=== PATIENT | female | born 1940 | race Caucasian/White ===

== ENCOUNTER 2023-01-23 17:54 | Outpatient (RCR) | payer MEDICARE, OTHER, SELFPAY | END 2023-02-17 23:59 | disposition home or self-care (01) | LOC: MM 17:54 | PROVIDERS: PCP Internal Medicine; Visit Provider Internal Medicine | DX: Z51.81 Encounter for therapeutic drug level monitoring (principal); Z79.01 Long term (current) use of anticoagulants | CPT/HCPCS: 85610; G0463 ==

== ENCOUNTER 2023-02-22 11:14 | Outpatient (RCR) | payer MEDICARE, OTHER, SELFPAY | END 2023-03-20 16:47 | disposition home or self-care (01) | LOC: MM 11:14 | PROVIDERS: PCP Internal Medicine; Visit Provider Internal Medicine | DX: Z51.81 Encounter for therapeutic drug level monitoring (principal); Z79.01 Long term (current) use of anticoagulants | CPT/HCPCS: 85610; G0463 ==

== ENCOUNTER 2023-03-21 08:59 | Outpatient (RCR) | payer MEDICARE, OTHER, SELFPAY | END 2023-04-20 17:16 | disposition home or self-care (01) | LOC: MM 08:59 | PROVIDERS: Visit Provider Internal Medicine | DX: Z51.81 Encounter for therapeutic drug level monitoring (principal); Z79.01 Long term (current) use of anticoagulants | CPT/HCPCS: 85610; G0463 ==

== ENCOUNTER 2023-04-21 08:06 | Outpatient (RCR) | payer MEDICARE, OTHER, SELFPAY | END 2023-05-19 16:34 | disposition home or self-care (01) | LOC: MM 08:06 | PROVIDERS: Visit Provider Internal Medicine | DX: Z51.81 Encounter for therapeutic drug level monitoring (principal); Z79.01 Long term (current) use of anticoagulants | CPT/HCPCS: 85610; G0463 ==

== ENCOUNTER 2023-05-22 02:26 | Outpatient (RCR) | payer MEDICARE, OTHER, SELFPAY | END 2023-06-20 17:34 | disposition home or self-care (01) | LOC: MM 02:26 | PROVIDERS: Visit Provider Internal Medicine | DX: Z51.81 Encounter for therapeutic drug level monitoring (principal); Z79.01 Long term (current) use of anticoagulants | CPT/HCPCS: 85610; G0463 ==

== ENCOUNTER 2023-06-21 00:27 | Outpatient (RCR) | payer MEDICARE, OTHER, SELFPAY | END 2023-07-20 16:24 | disposition home or self-care (01) | LOC: MM 00:27 | PROVIDERS: Visit Provider Internal Medicine | DX: Z51.81 Encounter for therapeutic drug level monitoring (principal); Z79.01 Long term (current) use of anticoagulants | CPT/HCPCS: 85610; G0463 ==

== ENCOUNTER 2023-07-21 09:01 | Outpatient (RCR) | payer MEDICARE, OTHER, SELFPAY | END 2023-08-18 15:27 | disposition home or self-care (01) | LOC: MM 09:01 | PROVIDERS: Visit Provider Internal Medicine | DX: Z51.81 Encounter for therapeutic drug level monitoring (principal); Z79.01 Long term (current) use of anticoagulants ==

== ENCOUNTER 2023-08-21 00:43 | Outpatient (RCR) | payer MEDICARE, OTHER, SELFPAY | END 2023-09-20 15:47 | disposition home or self-care (01) | LOC: MM 00:43 | PROVIDERS: Visit Provider Internal Medicine | DX: Z51.81 Encounter for therapeutic drug level monitoring (principal); Z79.01 Long term (current) use of anticoagulants; I26.99 Other pulmonary embolism without acute cor pulmonale | CPT/HCPCS: 85610; G0463 ==

== ENCOUNTER 2023-09-21 00:43 | Outpatient (RCR) | payer MEDICARE, OTHER, SELFPAY | END 2023-10-19 17:09 | disposition home or self-care (01) | LOC: MM 00:43 | PROVIDERS: Visit Provider Internal Medicine | DX: Z51.81 Encounter for therapeutic drug level monitoring (principal); Z79.01 Long term (current) use of anticoagulants; I26.99 Other pulmonary embolism without acute cor pulmonale | CPT/HCPCS: 85610; G0463 ==

== ENCOUNTER 2023-10-20 01:04 | Outpatient (RCR) | payer MEDICARE, OTHER, SELFPAY | END 2023-11-17 13:01 | disposition home or self-care (01) | LOC: MM 01:04 | PROVIDERS: Visit Provider Internal Medicine | DX: Z51.81 Encounter for therapeutic drug level monitoring (principal); Z79.01 Long term (current) use of anticoagulants; I26.99 Other pulmonary embolism without acute cor pulmonale ==

== ENCOUNTER 2023-11-20 03:13 | Outpatient (RCR) | payer MEDICARE, OTHER, SELFPAY | END 2023-12-19 17:46 | disposition home or self-care (01) | LOC: MM 03:13 | PROVIDERS: Visit Provider Internal Medicine | DX: Z51.81 Encounter for therapeutic drug level monitoring (principal); Z79.01 Long term (current) use of anticoagulants; I26.99 Other pulmonary embolism without acute cor pulmonale | CPT/HCPCS: 85610; G0463 ==

== ENCOUNTER 2023-12-20 00:15 | Outpatient (RCR) | payer MEDICARE, OTHER, SELFPAY | END 2024-01-19 11:09 | disposition home or self-care (01) | LOC: MM 00:15 | PROVIDERS: Visit Provider Internal Medicine | DX: Z51.81 Encounter for therapeutic drug level monitoring (principal); Z79.01 Long term (current) use of anticoagulants; I26.99 Other pulmonary embolism without acute cor pulmonale | CPT/HCPCS: 85610; G0463 ==

== ENCOUNTER 2024-01-22 00:14 | Outpatient (RCR) | payer MEDICARE, OTHER, SELFPAY | END 2024-02-16 09:56 | disposition home or self-care (01) | LOC: MM 00:14 | PROVIDERS: Visit Provider Internal Medicine | DX: Z51.81 Encounter for therapeutic drug level monitoring (principal); Z79.01 Long term (current) use of anticoagulants; I26.99 Other pulmonary embolism without acute cor pulmonale ==

== ENCOUNTER 2024-02-19 00:35 | Outpatient (RCR) | payer MEDICARE, OTHER, SELFPAY | END 2024-03-20 09:35 | disposition home or self-care (01) | LOC: MM 00:35 | PROVIDERS: Visit Provider Internal Medicine | DX: Z51.81 Encounter for therapeutic drug level monitoring (principal); Z79.01 Long term (current) use of anticoagulants; I26.99 Other pulmonary embolism without acute cor pulmonale | CPT/HCPCS: 85610; G0463 ==

== ENCOUNTER 2024-03-21 00:28 | Outpatient (RCR) | payer MEDICARE, OTHER, SELFPAY | END 2024-04-19 09:15 | disposition home or self-care (01) | LOC: MM 00:28 | PROVIDERS: Visit Provider Internal Medicine | DX: Z51.81 Encounter for therapeutic drug level monitoring (principal); Z79.01 Long term (current) use of anticoagulants | CPT/HCPCS: 85610; G0463 ==

== ENCOUNTER 2024-04-22 00:50 | Outpatient (RCR) | payer MEDICARE, OTHER, SELFPAY | END 2024-05-20 23:50 | disposition home or self-care (01) | LOC: MM 00:50 | PROVIDERS: Visit Provider Internal Medicine | DX: Z51.81 Encounter for therapeutic drug level monitoring (principal); Z79.01 Long term (current) use of anticoagulants; I26.99 Other pulmonary embolism without acute cor pulmonale ==

== ENCOUNTER 2024-05-21 01:22 | Outpatient (RCR) | payer MEDICARE, OTHER, SELFPAY | END 2024-06-20 23:42 | disposition home or self-care (01) | LOC: MM 01:22 | PROVIDERS: Visit Provider Internal Medicine | DX: Z51.81 Encounter for therapeutic drug level monitoring (principal); Z79.01 Long term (current) use of anticoagulants; I26.99 Other pulmonary embolism without acute cor pulmonale | CPT/HCPCS: 85610; G0463 ==

== ENCOUNTER 2024-06-21 10:40 | Outpatient (RCR) | payer MEDICARE, OTHER, SELFPAY | END 2024-07-20 23:59 | disposition home or self-care (01) | LOC: MM 10:40 | PROVIDERS: Visit Provider Internal Medicine | DX: Z51.81 Encounter for therapeutic drug level monitoring (principal); Z79.01 Long term (current) use of anticoagulants; I26.99 Other pulmonary embolism without acute cor pulmonale | CPT/HCPCS: 85610; G0463 ==

== ENCOUNTER 2024-07-21 10:41 | Outpatient (RCR) | payer MEDICARE, OTHER, SELFPAY | END 2024-08-20 09:35 | disposition home or self-care (01) | LOC: MM 10:41 | PROVIDERS: Visit Provider Internal Medicine | DX: Z51.81 Encounter for therapeutic drug level monitoring (principal); Z79.01 Long term (current) use of anticoagulants ==

== ENCOUNTER 2024-08-22 00:16 | Outpatient (RCR) | payer MEDICARE, OTHER, SELFPAY | END 2024-09-20 15:20 | disposition home or self-care (01) | LOC: MM 00:16 | PROVIDERS: Visit Provider Internal Medicine | DX: Z51.81 Encounter for therapeutic drug level monitoring (principal); Z79.01 Long term (current) use of anticoagulants | CPT/HCPCS: 85610; G0463 ==

== ENCOUNTER 2024-09-23 02:34 | Outpatient (RCR) | payer MEDICARE, OTHER, SELFPAY | END 2024-10-18 10:48 | disposition home or self-care (01) | LOC: MM 02:34 | PROVIDERS: Visit Provider Internal Medicine | DX: Z51.81 Encounter for therapeutic drug level monitoring (principal); Z79.01 Long term (current) use of anticoagulants ==

== ENCOUNTER 2024-10-20 08:03 | Outpatient (RCR) | payer MEDICARE, OTHER, SELFPAY | END 2024-11-15 13:34 | disposition home or self-care (01) | LOC: MM 08:03 | PROVIDERS: Visit Provider Internal Medicine | DX: Z51.81 Encounter for therapeutic drug level monitoring (principal); Z79.01 Long term (current) use of anticoagulants ==

== ENCOUNTER 2024-11-19 06:11 | Outpatient (RCR) | payer MEDICARE, OTHER, SELFPAY | END 2024-12-18 15:16 | disposition home or self-care (01) | LOC: MM 06:11 | PROVIDERS: Visit Provider Internal Medicine | DX: Z51.81 Encounter for therapeutic drug level monitoring (principal); Z79.01 Long term (current) use of anticoagulants | CPT/HCPCS: 85610; G0463 ==

== ENCOUNTER 2024-12-19 04:40 | Outpatient (RCR) | payer MEDICARE, OTHER, SELFPAY | END 2025-01-17 15:13 | disposition home or self-care (01) | LOC: MM 04:40 | PROVIDERS: Visit Provider Internal Medicine | DX: Z51.81 Encounter for therapeutic drug level monitoring (principal); Z79.01 Long term (current) use of anticoagulants | CPT/HCPCS: 85610; G0463 ==

== ENCOUNTER 2025-01-08 10:45 | Outpatient (OUT) | payer MEDICARE, OTHER, SELFPAY ==
--- OUTSIDE RECORDS SUMMARY | 2025-01-08 10:48 | XMS_ITS | Clinical Summary ---
Author Organization [facility] Address [address] [place] [address] Care Team Providers Care Personal Injury Specialist Name Role Phone Unavailable Primary Care Provider Unavailabl e Social History Tobacco Use Types Packs/Day Years Used Date Smoking Tobacco: Never Assessed Comments Unknown Sex and Gender Information Value Date Recorded Sex Assigned at Not on file Legal Sex Female 10:59 PM EST Gender Identity Not on file Sexual Orientation Not on file Plan of Treatment Not on file
--- OUTSIDE RECORDS SUMMARY | 2025-01-08 10:50 | XMS_ITS | CCD ---
Author Organization [facility] Care Team Providers Care [place] Cleaner Name Role Phone Barbara Holman Unavailable DR BARBARA HOLMAN Primary Care Unavailable FAWWAD, KLINE H Attending Unavailable FAWWAD, KLINE H Admitting Unavailable FAWWAD, KLINE H Attending Unavailable DR BARBARA HOLMAN Primary Care Unavailable FAWWAD, KLINE H Admitting Unavailable FAWWAD, KLINE H Attending Unavailable DR BARBARA HOLMAN Primary Care Unavailable FAWWAD, KLINE H Admitting Unavailable FAWWAD, KLINE H Attending Unavailable DR BARBARA HOLMAN Primary Care Unavailable FAWWAD, KLINE H Admitting Unavailable FAWWAD, KLINE H Attending Unavailable DR BARBARA HOLMAN Primary Care Unavailable FAWWAD, KLINE H Admitting Unavailable FAWWAD, KLINE H Attending Unavailable DR BARBARA HOLMAN Primary Care Unavailable FAWWAD, KLINE H Admitting Unavailable FAWWAD, KLINE H Attending Unavailable DR BARBARA HOLMAN Primary Care Unavailable FAWWAD, KLINE H Admitting Unavailable FAWWAD, KLINE H Attending Unavailable DR BARBARA HOLMAN Primary Care Unavailable FAWWAD, KLINE H Admitting Unavailable FAWWAD, KLINE H Admitting Unavailable DR BARBARA HOLMAN Primary Care Unavailable FAWWAD, KLINE H Attending Unavailable DR BARBARA HOLMAN Primary Care Unavailable FAWWAD, KLINE H Attending Unavailable FAWWAD, KLINE H Admitting Unavailable DR BARBARA HOLMAN Primary Care Unavailable FAWWAD, KLINE H Attending Unavailable FAWWAD, KLINE H Admitting Unavailable BARBARA HOLMAN Primary Care Physician [phone] BARBARA HOLMAN Unavailable Greg Oakley Attending UnavailGreg Haskins Admitting UnavailDANIE Mendoza Referring Unavailable CARMEN, DANIE Mccoy Attending Unavailable BARBARA HOLMAN Referring Unavailable CARMEN, DANIE Mccoy Attending Unavailable CARMEN, DANIE Mccoy Attending Unavailable CARMEN, DANIE Mccoy Attending Unavailable CARMEN, DANIE Mccoy Attending Unavailable Barbara Holman MD Attending Provider [phone] Barbara Holman Attending Unavailable Barbara Holman Admitting Unavailable Allergies Allergy Classification Reported Allergen(s) Allergy Type Date of Onset Reaction(s) Facility (1 source) patient allergy list reviewed by nurse or physicia Propensity to adverse reactions Comment:Done [employer] Other (1 source) Allergies Reconciled Propensity to adverse reactions Unknown [employer] Other (2 sources) heparin; Translations: [heparin] Drug Allergy Unknown (qualifier value) [facility] Medications Current Medications Medication Drug Class(es) Dates Sig (Normalized) Sig (Original) amLODIPine 5 mg oral tablet (4 sources) Dihydropyridine Calcium Channel Gasper take 1 tablet by mouth every twenty-four hours amLODIPine Besylate 5 MG 1 tablet Orally Once a day Active aspirin 81 mg delayed release oral tablet (7 sources) Platelet Aggregation Inhibitor, Nonsteroidal Anti-inflammatory Drug Start: 11-29-2023 take 1 tablet by mouth once daily Aspirin 81 mg tablet,delayed release (DR/EC) Active 81 MG PO Daily November 29, 2023 12:00am FreeTextSi tablet Orally Once a day; Note: Source Status: Taking; Provider: Lisa Jimenez ( ) take 1 tablet by vanessa th every twenty-four hours Aspirin 81 81 MG 1 tablet Orally Once a day Active atorvastatin 40 mg oral tablet (4 sources) HMG-CoA Reductase Inhibitor take 1 tablet by mouth every twenty-four hours Atorvastatin Calcium 40 MG 1 tablet Orally Once a day Active losartan potassium 100 mg oral tablet (19 sources) Angiotensin 2 Receptor Gasper Start: 05-13-20 End: 08-12-20 take 1 tablet by mouth once daily Losartan 100 mg tablet Active 0 .ROUTE .COMPLEX 90 August 12, 2024 10:51am Take 1 tablet by mouth once daily Start: 02-15-2024 End: 05-13-2024 take 1 tablet by mouth once daily Losartan 100 mg tablet Discontinued 100 MG PO Daily February 15, 2024 2:50pm May 13, 2024 1:12pm Start: 11-08-2023 End: 02-15-2024 take 1 tablet by mouth once daily Losartan 100 mg tablet Discontinued 0 .ROUTE .COMPLEX February 12, 2024 12:50pm February 15, 2024 2:51pm Take 1 tablet by mouth once daily Start: 09-13-2022 End: 11-08-2023 take 1 tablet by mouth once daily Losartan 100 mg tablet Discontinued 100 MG PO Daily November 08, 2023 12:00am November 08, 2023 1:51pm Occupational therapy (1 source) Start: 09-15-2022 Occupational therapy Occupational therapy, Print Requisition, Supply Start Date: 09/15/22 Status: Ordered warfarin sodium 2 mg oral tablet (16 sources) Vitamin K Antagonist Start: 06-24-2024 End: 10-10-2024 take 1 tablet by mouth once daily Warfarin 2 mg tablet Active 0 .ROUTE .COMPLEX October 10, 2024 12:31pm Take 1 tablet by mouth once daily Start: 09-13-2022 End: 06-24-2024 take 1 tablet by mouth once daily Warfarin 2 mg tablet Discontinued 2 MG PO Daily November 29, 2023 12:00am January 01, 2024 2:53pm Completed/Discontinued Medications Medication Drug Class(es) Dates Sig (Normalized) Sig (Original) atenolol 100 mg oral tablet (12 sources) beta-Adrenergic Gasper Start: 03-27-2024 End: 09-24-2024 take 1 tablet by mouth once daily Atenolol 100 mg tablet Discontinued 0 .ROUTE .COMPLEX June 24, 2024 5:43pm September 24, 2024 3:41pm Take 1 tablet by mouth once daily Start: 09-13-2022 End: 03-27-2024 take 1 tablet by mouth once daily Atenolol 100 mg tablet Discontinued 1 TAB PO Daily November 29, 2023 12:00am January 01, 2024 2:53pm FreeTextSig: Take 1 tablet by mouth once daily; Note: Source Status: Start; Refills: 0; Qty: 90 Tablet; Provider: Lisa Jimenez ( ) hydroCHLOROthiazide 25 mg oral tablet (19 sources) Thiazide Diuretic Start: 10-23-2023 End: 10-30-2024 take 1 tablet by mouth once daily Hydrochlorothiazide 25 mg tablet Discontinued 0 .ROUTE .COMPLEX 90 July 29, 2024 5:53pm October 30, 2024 12:39pm Take 1 tablet by mouth once daily Start: 09-13-2022 End: 10-23-2023 take 1 tablet by mouth once daily Hydrochlorothiazide 25 mg tablet Discontinued 25 MG PO Daily October 23, 2023 1:00am October 23, 2023 4:07pm methylPREDNISolone 4 mg oral tablet (3 sources) Corticosteroid Start: 11-29-2023 End: 12-12-2024 Methylprednisolone 4 mg tablets,dose pack Discontinued 0 PO per package directions November 29, 2023 12:00am December 12, 2024 10:36am PO PER PKG DIR for 6 days Start: 11-29-2023 Methylpredniso lone Active 0 PO per package directions November 29, 2023 12:00am PO PER PKG DIR for 6 days traMADol hydrochloride 50 mg oral tablet (5 sources) Opioid Agonist Start: 11-29-2023 End: 11-29-2023 take 1 tablet by mouth four times daily as needed Tramadol 50 mg tablet Discontinued MG PO November 29, 2023 12:00am November 29, 2023 11:10am FreeTextSi tablet Orally four times daily, as needed; Note: Source Status: Refill; Qty: 28 Tablet; Provider: Lisa Humphreys Start: 06-29-2023 take 1 tablet by vanessa th four times daily as needed traMADol HCl 50 MG 1 tablet Orally four times daily, as needed for 7 days Jun, Active Start: 12-09-2022 take 1 tablet by vanessa th four times daily as needed traMADol HCl 50 MG 1 tablet Orally four times daily, as needed for 7 days Nov, Active 24 hr venlafaxine 150 mg extended release oral capsule (16 sources) Serotonin and Norepinephrine Reuptake Inhibitor Start: 09-13-2022 End: 12-05-2024 take 1 capsule by mouth once daily Venlafaxine 150 mg capsule,extended release 24hr Discontinued 150 MG PO Daily October 30, 2023 10:18am Ada 10th, 2024 11:23am Problems Active Problems Problem Classification Problem Date Documented Date Episodic/Chronic Acute cerebrovascular disease (8 sources) Ischemic stroke; Translations: [Cerebral infarction, unspecified] Chronic Anxiety disorders (8 sources) Mixed anxiety and depressive disorder; Translations: [Other specified anxiety disorders] 11-29-2023 Chronic Coagulation and hemorrhagic disorders (8 sources) Hypercoagulability state; Translations: [Other primary thrombophilia] Chronic Conditions associated with dizziness or vertigo (5 sources) Vertigo; Translations: [Dizziness and giddiness] Episodic Diabetes mellitus without complication (6 sources) Impaired fasting glycemia; Translations: [Impaired fasting glucose] Onset: 6 Episodic Disorders of lipid metabolism (6 sources) Hyperlipidemia; Translations: [Hyperlipidemia, unspecified] Onset: 3 Chronic Essential hypertension (11 sources) Essential hypertension; Translations: [Essential (primary) hypertension] Onset: 3 Chronic Genitourinary symptoms and ill-defined conditions (4 sources) Dysuria; Translations: [Dysuria] 12-12-2024 Episodic Heart valve disorders (5 sources) Heart murmur; Translations: [Cardiac murmur, unspecified] 11-29-2023 Episodic Mood disorders (1 source) Dysthymia; Translations: [Dysthymic disorder] Chronic Osteoarthritis (7 sources) Osteoarthritis of left knee joint; Translations: [Unilateral primary osteoarthritis, left knee] Chronic Other aftercare (4 sources) Encounter for therapeutic drug level monitoring; Translations: [ENC THERAPEUTC DRUG LEVL MONITORING] Onset: 3 Episodic Other aftercare (1 source) detention (current) use of anticoagulants; Translations: [LONGTERM CURRNT USE ANTICOAGULANTS] Onset: 3 Episodic Other circulatory disease (5 sources) Elevated blood-pressure reading without diagnosis of hypertension; Translations: [Elevated blood-pressure reading, without diagnosis of hypertension] Episodic Other injuries and conditions due to external causes (1 source) History of fall; Translations: [History of falling] Episodic Other non-traumatic joint disorders (5 sources) Pain in right knee; Translations: [Pain in both knees] 11-29-2023 Episodic Other nutritional; endocrine; and metabolic disorders (5 sources) Morbid obesity; Translations: [Morbid (severe) obesity due to excess calories] Chronic Other nutritional; endocrine; and metabolic disorders (2 sources) Obesity; Translations: [Class 2 obesity with body mass index (BMI) of 38.0 to 38.9 in adult] 12-12-2024 Chronic Other skin disorders (4 sources) Inflamed seborrheic keratosis; Translations: [Inflamed seborrheic keratosis] Episodic Pulmonary heart disease (2 sources) Personal history of pulmonary embolism; Translations: [H/O: pulmonary embolus] Onset: 3 Episodic Spondylosis; intervertebral disc disorders; other back problems (1 source) Degeneration of lumbar intervertebral disc; Translations: [Degeneration of lumbar or lumbosacral intervertebral disc] Chronic Past or Other Problems Problem Classification Problem Date Documented Date Episodic/Chronic Malaise and fatigue (1 source) Fatigue; Translations: [Other fatigue] Onset: 02-22-2018 Episodic Other non-traumatic joint disorders (1 source) Arthralgia of the pelvic region and thigh; Translations: [Pain in joint, pelvic region and thigh] Onset: 08-31-2016 Episodic Other non-traumatic joint disorders (1 source) Arthralgia of the lower leg; Translations: [Pain in joint, lower leg] Onset: 01-31-2017 Episodic Other nutritional; endocrine; and metabolic disorders (1 source) Abnormal weight gain; Translations: [Abnormal weight gain] Onset: 03-20-2014 Episodic Residual codes; unclassified (1 source) Postoperative state; Translations: [Other postprocedural status] Onset: 02-14-2017 Episodic Results Test Name Value Interpretation Reference Range Facility Appearance of UrineOrdered B y: Barbara Holman on 12-12-2024 Appearance (U) Urine appearance Clear [facility] Bacteria [Presence] in Urine by AutomatedOrdered By: Barbara Holman on 12-12-2024 Bacteria Auto Ql (U) Bacteria [Presence] in Urine by Automated High None Seen [facility] Bilirubin Test strip Ql (U)O rdered By: Barbara Holman on 12-12-2024 Bilirubin Ql (U) Bilirubin.total [Presence] in Urine by Test strip Negative [facility] Color Auto (U)Ordered By: Paula Holman on 12-12-2024 Color (U) Color of Urine by Auto Yellow [facility] Creatinine [Mass/volume] in UrineOrdered By: Barbara Holman on 12-12-2024 Creatinine (U) [Mass/Vol] Creatinine [Mass/volume] in Urine [facility] Comment on above: No reference range e stablished Dipstick and Microscopicon 0 12-12-2024 Appearance (U) Clear Normal Clear [facility] Comment on above: Order Comment: Name Collection Type:: Clean-Voided Midstream Performed By: #### C UU, ADDONUAPLUS, URMACRERAT #### [address] Bacteria,Urine 4+ High None Seen [facility] Comment on above: Order Comment: Name Collection Type:: Clean-Voided Midstream Performed By: #### C UU, ADDONUAPLUS, URMACRERAT #### [place] [address] [place] Bilirubin,Urine Negative Normal Negative [facility] Comment on above: Order Comment: Name Collection Type:: Clean-Voided Midstream Performed By: #### C UU, ADDONUAPLUS, URMACRERAT #### [address] Color (U) Light-Yellow Normal Yellow [facility] Comment on above: Order Comment: Name Collection Type:: Clean-Voided Midstream Performed By: #### C UU, ADDONUAPLUS, URMACRERAT #### [address] Glucose Ql (U) Normal Normal Normal [facility] Comment on above: Order Comment: Name Collection Type:: Clean-Voided Midstream Performed By: #### C UU, ADDONUAPLUS, URMACRERAT #### [place] [address] [place] Hyaline Casts,Urine None Normal 0-8 [facility] Comment on above: Order Comment: Name Collection Type:: Clean-Voided Midstream Performed By: #### C UU, ADDONUAPLUS, URMACRERAT #### [address] Ketones Ql (U) Negative Normal Negative [facility] Comment on above: Order Comment: Name Collection Type:: Clean-Voided Midstream Performed By: #### C UU, ADDONUAPLUS, URMACRERAT #### [address] Leukocyte esterase Test strip Ql (U) 3+ High Negative [facility] Comment on above: Order Comment: Name Collection Type:: Clean-Voided Midstream Performed By: #### C UU, ADDONUAPLUS, URMACRERAT #### [place] [address] [place] Mucus,Urine Rare Normal [facility] Comment on above: Order Comment: Name Collection Type:: Clean-Voided Midstream Result Comment: PERF ORMED BY: [place] [address] REGISTRY OFFICER SABRINA PAZ M.D. Performed By: #### C UU, ADDONUAPLUS, URMACRERAT #### [place] [address] [place] Nitrite,Urine Negative Normal Negative [facility] Comment on above: Order Comment: Name Collection Type:: Clean-Voided Midstream Performed By: #### C UU, ADDONUAPLUS, URMACRERAT #### [place] [address] [place] Occult Blood,Urine Negative Normal Negative [facility] Comment on above: Order Comment: Name Collection Type:: Clean-Voided Midstream Result Comment: PERF ORMED BY: [place] [address] REGISTRY OFFICER SABRINA PAZ M.D. Performed By: #### C UU, ADDONUAPLUS, URMACRERAT #### [place] [id number] [place] pH (U) 6.0 [pH] Normal 5.0-9.0 [facility] Comment on above: Order Comment: Name Collection Type:: Clean-Voided Midstream Performed By: #### C UU, ADDONUAPLUS, URMACRERAT #### [place] [address] [place] Protein,Urine Negative Normal Negative [facility] Comment on above: Order Comment: Name Collection Type:: Clean-Voided Midstream Performed By: #### C UU, ADDONUAPLUS, URMACRERAT #### [place] [address] [place] RBC,Urine 1-2 Normal 0-4 [facility] Comment on above: Order Comment: Name Collection Type:: Clean-Voided Midstream Performed By: #### C UU, ADDONUAPLUS, URMACRERAT #### [address] Specificy [place],Urine 1.008 Normal 1.001-1.030 [facility] Comment on above: Order Comment: Name Collection Type:: Clean-Voided Midstream Performed By: #### C UU, ADDONUAPLUS, URMACRERAT #### [address] Squamous Epithelial Cell,Urine 3-4 High 0-2 [facility] Comment on above: Order Comment: Name Collection Type:: Clean-Voided Midstream Performed By: #### C UU, ADDONUAPLUS, URMACRERAT #### [place] [address] [place] Urobilinogen,Urine Normal Normal Normal [facility] Comment on above: Order Comment: Name Collection Type:: Clean-Voided Midstream Performed By: #### C UU, ADDONUAPLUS, URMACRERAT #### [place] [address] [place] WBC CLUMP, Urine Few High None Seen [facility] Comment on above: Order Comment: Name Collection Type:: Clean-Voided Midstream Performed By: #### C UU, ADDONUAPLUS, URMACRERAT #### [place] [address] [place] WBC,Urine 20-49 High 0-4 [facility] Comment on above: Order Comment: Name Collection Type:: Clean-Voided Midstream Performed By: #### C UU, ADDONUAPLUS, URMACRERAT #### [facility] [address] Epithelial cells.squamous [# /area] in Urine sediment by Automated countOrdered By: Barbara Holman on 12-12-2024 Epithelial cells.squamous Auto (Urine sed) [#/Area] Epithelial cells.squamous [#/area] in Urine sediment by Automated count High 0-2 [facility] Erythrocytes [#/area] in Uri ne sediment by Automated countOrdered By: Barbara Holman on 12-12-2024 RBC Auto (Urine sed) [#/Area] Erythrocytes [#/area] in Urine sediment by Automated count 0-4 [facility] Glucose [Mass/volume] in Uri ne by Test stripOrdered By: Barbara Holman on 12-12-2024 Glucose Test strip (U) [Mass/Vol] Glucose [Mass/volume] in Urine by Test strip Normal [facility] Hemoglobin Test strip Ql (U) Ordered By: Barbara Holman on 12-12-2024 Hemoglobin Ql (U) Hemoglobin [Presence] in Urine by Test strip Negative [facility] Hyaline casts [#/area] in Ur ine sediment by Automated countOrdered By: Barbara Holman on 12-12-2024 Hyaline casts Auto (Urine sed) [#/Area] Hyaline casts [#/area] in Urine sediment by Automated count 0-8 [facility] Ketones Test strip Ql (U)Ord ered By: Barbara Holman on 12-12-2024 Ketones Ql (U) Ketones [Presence] in Urine by Test strip Negative [facility] Leukocyte clumps [Presence] in Urine by AutomatedOrdered By: Barbara Holman on 12-12-2024 Leukocyte clumps Auto Ql (U) Leukocyte clumps [Presence] in Urine by Automated High None Seen [facility] Leukocyte esterase [Presence ] in Urine by Test stripOrdered By: Barbara Holman on 12-12-2024 Leukocyte esterase Test strip Ql (U) Leukocyte esterase [Presence] in Urine by Test strip High Negative [facility] Leukocytes [#/area] in Urine sediment by Automated countOrdered By: Barbara Holman on 12-12-2024 WBC Auto (Urine sed) [#/Area] Leukocytes [#/area] in Urine sediment by Automated count High 0-4 [facility] MicroAlb Creat Ratio,Uon Albumin DL <= 20 mg/L (U) [Mass/Vol] 0.9 mg/dL Normal 0.0-1.8 [facility] Comment on above: Performed By: #### C UU, ADDONUAPLUS, URMACRERAT #### [address] Creatinine, Urine (Random) 37.00 mg/dL Normal [facility] Comment on above: Result Comment: No r eference range established Performed By: #### C UU, ADDONUAPLUS, URMACRERAT #### [address] Microalbumin/Creatinin e Ratio 24.3 mg/g Normal 0.0-30.0 [facility] Comment on above: Result Comment: 30-3 00 mg/g indicates an increased risk for diabetic nephropathy. Greater than 300 mg/g is consistent with clinical nephropathy. (Am. J. Kidney Disease 1995, 25:107) PERFORMED BY: [place] [address] REGISTRY OFFICER SABRINA PAZ M.D. Performed By: #### C UU, ADDONUAPLUS, URMACRERAT #### [address] Microalbumin [Mass/volume] i n UrineOrdered By: Barbara Holman on 12-12-2024 Albumin DL <= 20 mg/L (U) [Mass/Vol] Microalbumin [Mass/volume] in Urine 0.0-1.8 [facility] Mucus [Presence] in Urine by AutomatedOrdered By: Barbara Holman on 12-12-2024 Mucus Auto Ql (U) Mucus [Presence] in Urine by Automated [facility] Nitrite Test strip Ql (U)Ord ered By: Barbara Holman on 12-12-2024 Nitrite Ql (U) Nitrite [Presence] in Urine by Test strip Negative [facility] Protein Test strip (U) [Mass /Vol]Ordered By: Barbara Holman on 12-12-2024 Protein (U) [Mass/Vol] Protein [Mass/volume] in Urine by Test strip Negative [facility] Specific gravity Test strip (U) [Rel density]Ordered By: Barbara Holman on 12-12-2024 Specific gravity (U) [Rel density] Specific gravity of Urine by Test strip 1.001-1.030 [facility] Urine Cultureon 12-12-2024 Bacteria identified Cx Nom (U) ORGANISM: Escherichia coli (O:ESCCOL) [place] Count >100,000 Aerobic ALYCE Charge (NMIC56) ----- SUSCEPTIBILITY ---- ORGANISM: O:ESCCOL ANTIBIOTIC INTERPRETATION ALYCE Amikacin S <16 Amoxacillin/K Clavulanate S <8 Ampicillin S <8 Ampicillin/Sulbactam S <4 Aztreonam S <4 Cefazolin S <2 Cefepime S <2 Ceftazidime S <1 Ceftazidime/Avibacta m S <4 Ceftolozane/Tazobact am S <2 Ceftriaxone S <1 Cefuroxime S <4 Ciprofloxacin S <0.25 Ertapenem S <0.5 Gentamicin S <2 Levofloxacin S <0.5 Meropenem S <1 Meropenem/Vaborbacta m S <2 Nitrofurantoin S <32 Piperacillin/Tazobac carbajal S <8 Tetracycline S <4 Tigecycline S <2 Tobramycin S <2 Trimethoprim/Sulfame thoxazole S <0.5 S = SUSCEPTIBLE I = INTERMEDIATE R = RESISTANT BLANK = DATA NOT AVAILABLE, OR DRUG NOT ADVISABLE OR TESTED R* = RESISTANCE DUE TO EXTENDED SPECTRUM BETA-LACTAMASES ESBL = EXTENDED SPECTRUM BETA-LACTAMASE TFG = THYMIDINE-DEPENDENT STRAIN AYALA = BETA-LACTAMASE POSITIVE IB = INDUCIBLE BETA-LACTAMASE. APPEARS IN PLACE OF 'S' WITH SPECIES KNOWN TO POSSESS INDUCIBLE BETA-LACTAMASES. POTENTIALLY THEY MAY BECOME RESISTANT TO ALL B-LACTAM DRUGS. PERFORMED BY: [facility] [address] [place] [address] REGISTRY OFFICER SABRINA PAZ M.D. Normal [facility] Comment on above: Performed By: #### C UU, ADDJUANA, URMACRERAT #### [facility] [address] Urine microalbumin/creatinin e mass ratioOrdered By: Barbara Holman on 12-12-2024 Albumin/Creatinine DL <= 20 mg/L (U) [Mass ratio] Urine microalbumin/creatin ine mass ratio 0.0-30.0 [facility] Comment on above: 30-300 mg/g indicate s an increased risk for diabetic nephropathy. Greater than 300 mg/g is consistent with clinical nephropathy. (Am. J. Kidney Disease 1995, 25:107) Urobilinogen Test strip (U) [Mass/Vol]Ordered By: Barbara Holman on 12-12-2024 Urobilinogen (U) [Mass/Vol] Urobilinogen [Mass/volume] in Urine by Test strip Normal [facility] pH Test strip (U)Ordered By: Barbara Holman on 12-12-2024 pH (U) pH of Urine by Test strip 5.0-9.0 [facility] Heart and Vascular Office/Cl inic Noteon 01-21-2024 Heart and Vascular Office/Clinic Note Chief Complaint here to establish care - murmur History of Present Illness Abbie Marquez is an 83-year-old female who presents for evaluation of heart murmur. She experienced a mild stroke approximately a year ago. The patient was referred to a humane agent by his primary care physician due to the presence of a heart murmur. She reports experiencing dyspnea, particularly when ascending stairs or hills, which she attributes to her advancing age and weight. She has not previously consulted with a humane agent and recalls a previous stress test conducted by Dr. Aguilar in [place]. Imaging Results: Echocardiogram shows calcium on the valves leading to some turbulent blood flow, but nothing significant or severe. EKG shows abnormal results. Review of Systems Constitutional: no fever, no sweats, no weakness Skin: no rash, no lesions, no bruising/petechiae ENMT: no sore throat, no congestion, no hoarseness Respiratory: positive for shortness of breath, no cough, no orthopnea, no wheezing Cardiovascular: no chest pain, no palpitations, no edema, positive for murmur. Gastrointestinal: no nausea, no vomiting, no diarrhea, no GI bleeding Genitourinary: no anuria/oliguria no hematuria Musculoskeletal: no back pain, no trauma Neurologic: no headache, no dizziness, no numbness, no weakness Psychiatric: no sleeping problems, no irritability, no anxiety/depression. Heme/Lymph: no bleeding tendency, no bruising tendency Allergy/Immunologic: no recurrent infections, no impaired immunity Additional ROS info: Except as noted in the above Review of Systems and in the History of Present Illness all other systems have been reviewed and are negative or noncontributory Physical Exam Vitals & Measurements HR: 67(Peripheral) BP: 138/90 SpO2: 96% HT: 62 in HT: 157 cm WT: 99.2 kg WT: 218.24 lb BMI: 40.25 General: alert, no acute distress Skin: warm, dry intact Head: atraumatic, normocephalic Neck: trachea midline, no JVD, no bruit Eye: normal conjunctiva, sclera clear ENMT: oral mucosa moist Cardiovascular: regular rate and rhythm, normal peripheral perfusion, positive for murmur. Respiratory: lungs CTA, respirations non labored Chest wall: no deformity. Gastrointestinal: soft, non-distended, no tenderness, no guarding. Back: no tenderness, normal ROM, normal alignment. Extremities: no edema, no deformity, no trauma Neurological: oriented x 4, LOC appropriate for age, sensation equal & normal bilaterally, speech normal Psychiatric: cooperative, affect appropriate for age, normal judgement, normal psychiatric thoughts. Assessment/Plan Murmur (R01.1: Cardiac murmur, unspecified) An echocardiogram and a chemical stress test will be ordered for further evaluation. If the echocardiogram results remain stable compared to the one conducted in 2022, no further concerns will be made. However, if the condition deteriorates over time, a valve replacement may be necessary in 5 years. Follow-up The patient is scheduled for a follow-up visit in 4 weeks. ATTESTATION: Documentation services were performed after patient or guardian consented to allow [employer] to record this visit. RADHA medical management specialist and provider reviewed before signing. RADHA: Rachid Little. Portions of this record may have been created with voice recognition artificial intelligence software, specifically [employer], [employer] and or [employer]. Substitutions may have occurred due to the inherent limitations of voice recognition and artificial intelligence software. Follow-up No qualifying data available Problem List/Past Medical History Ongoing CVA (cerebrovascular accident) Historical No qualifying data Medications atenolol 100 mg Tab hydrochlorothiazide 25 mg Tab losartan 100 mg Tab Occupational therapy, 0 venlafaxine 150 mg Cap-ER warfarin 2 mg Tab Allergies heparin (Unknown) Social History Alcohol - Denies Alcohol Use, 09/13/2022 Substance Abuse - Denies Substance Abuse, 09/13/2022 Tobacco - Denies Tobacco Use, 09/13/2022 [facility] Comment on above: Result Comment: Elec tronically Signed By: Cele POMPA, Greg Sam\.br\Date and Time Signed: 01/21/24 19:43 EDT\.br\Electronically Co-Signed By: Rachid Little\.br\Date and Time Co-Signed: 12/27/23 15:55 EDT Consent for Treatmenton Consent for Treatment [id number] #1.00TIFF [facility] Physician Orderon 12-27-2023 Physician Order [id number] #1.00TIFF [facility] Referrals Officeon 4 Referrals Office [id number] 3#1.00TIFF [facility] Referrals Officeon 4 Referrals Office [id number] #1.00TIFF patient scheduled with Dr Oakley 12-27-23 @ 215p [facility] Vital Signs Date Time Vital Sign Value Performing Clinician Joaquín sarmiento 12-12-2024 10:33-0400 Body height 158.75 cm [facility] 12-12-2024 10:33-0400 Body mass index (BMI) [Ratio] 38.7 kg/m2 [facility] 12-12-2024 10:33-0400 Body weight 97.74 kg [facility] 12-12-2024 10:33-0400 Diastolic blood pressure 71 mm[Hg] [facility] 12-12-2024 10:33-0400 Heart rate 58 /min [facility] 12-12-2024 10:33-0400 Respiratory rate 12 /min [facility] 12-12-2024 10:33-0400 SaO2% (BldA) [Mass fraction] 95 % [facility] 12-12-2024 10:33-0400 Systolic blood pressure 123 mm[Hg] [facility] 12-27-2023 14:11-0400 Diastolic blood pressure 90 mm[Hg] Greg Oakley [facility] 12-27-2023 14:11-0400 Heart rate 67 /min Greg Oakley [facility] 12-27-2023 14:11-0400 SaO2% (BldA) [Mass fraction] 96 % Greg Oakley [facility] 12-27-2023 14:11-0400 Systolic blood pressure 138 mm[Hg] Greg Oakley [facility] 11-29-2023 10:54-0400 Body height 152.4 cm [facility] 11-29-2023 10:54-0400 Body mass index (BMI) [Ratio] 42.8 kg/m2 [facility] 11-29-2023 10:54-0400 Body weight 99.45 kg [facility] 11-29-2023 10:54-0400 Diastolic blood pressure 67 mm[Hg] [facility] 11-29-2023 10:54-0400 Heart rate 55 /min [facility] 11-29-2023 10:54-0400 Systolic blood pressure 105 mm[Hg] [facility] 09-21-2022 12:00-0500 Body height 152.4 cm Barbara Holman Other [facility] 09-21-2022 12:00-0500 Body mass index (BMI) [Ratio] 42.96 kg/m2 Barbara Holman Other [facility] 09-21-2022 12:00-0500 Body weight 99.79 kg Barbara Holman Other [facility] Other 09-21-2022 12:00-0500 Diastolic blood pressure 72 mm[Hg] Barbara Holman Other [facility] Other 09-21-2022 12:00-0500 SaO2% (BldA) [Mass fraction] 97 % Barbara Holman Other [facility] Other 09-21-2022 12:00-0500 Systolic blood pressure 130 mm[Hg] Barbara Holman Other [facility] Other Encounters Encounter Date Encounter Type Care Provider Facility Start: 12-12-2024 End: 12-12-2024 Departed Referred Barbara Holman MD Work Phone: [facility] [place] Work Phone: Start: 12-12-2024 End: 12-12-2024 ambulatory Barbara Holman [facility] Work Phone: Start: 12-12-2024 End: 12-12-2024 Patient encounter procedure [facility] Work Phone: Start: 04-01-2024 End: 04-01-2024 ambulatory MEKA POCOS Not Available Start: 02-19-2024 End: 02-19-2024 ambulatory MEKA POCOS Not Available Start: 02-12-2024 End: 02-12-2024 ambulatory MEKA POCOS Not Available Start: 02-05-2024 End: 02-05-2024 ambulatory MEKA POCOS Not Available Start: 01-03-2024 End: 01-03-2024 ambulatory MEKA POCOS Not Available Start: 12-27-2023 End: 12-27-2023 ambulatory BARBARA HOLMAN Facility:[facility] Start: 12-27-2023 End: 12-27-2023 Patient encounter procedure Greg Oakley [facility] Start: 11-29-2023 Patient encounter procedure [facility] Start: 11-29-2023 End: 11-29-2023 ambulatory [facility] Work Phone: Start: 11-29-2023 End: 11-29-2023 Patient encounter procedure [facility] Work Phone: Start: 10-30-2023 Non-patient / Non-visit [facility] Work Phone: Start: 10-23-2023 Non-patient / Non-visit [facility] Work Phone: Start: 06-28-2023 End: 06-28-2023 ambulatory Barbara Holman Other [facility] Other Start: 06-28-2023 Telephone encounter Barbara Holman [facility] Start: 12-19-2022 End: 01-18-[address] BARBARA HOLMAN Facility: Start: 12-08-2022 End: 12-08-2022 ambulatory Barbara Holman Other [facility] Other Start: 12-08-2022 Telephone encounter Barbara Holman [facility] Start: 11-21-2022 End: 12-16-[address] BARBARA HOLMAN Facility:[facility] Start: 10-19-2022 End: 11-18-[address] BARBARA HOLMAN Facility:[facility] Start: 09-21-2022 Office outpatient visit 25 minutes Barbara Holman [facility] Start: 09-21-2022 End: 10-19-2022 ambulatory KLINE H FAWWAD [facility] Other Start: 09-16-2022 End: 09-16-2022 ambulatory Barbara Holman Other [facility] Other Start: 09-16-2022 Telephone encounter Barbara Holman [facility] Start: 08-22-2022 End: 09-21-2022 ambulatory KLINE H FAWWAD Facility:[facility] Start: 07-21-2022 End: 08-21-2022 ambulatory KLINE H FAWWAD Facility:[facility] Start: 06-21-2022 End: 07-20-2022 ambulatory KLINE H FAWWAD Facility:[facility] Start: 05-22-2022 End: 06-20-2022 ambulatory KLINE H FAWWAD Facility:[facility] Start: 04-26-2022 Adult health examination Barbara Holman Other [facility] Other Start: 04-21-2022 End: 05-21-2022 ambulatory KLINE H FAWWAD Facility:[facility] Start: 03-21-2022 End: 04-20-2022 ambulatory KLINE H FAWWAD Facility:[facility] Start: 02-18-2022 End: 03-18-2022 ambulatory KLINE H FAWWAD Facility:[facility] Procedures Date Procedure Procedure Detail Performing Clinician Start: 02-22-2018 General examination of patient Barbara Holman Other Removal of suture Barbara Patel latrice Other Plan of Treatment Date Care Activity Detail Author Start: 12-12-2024 Bacteria identified in Urine by Culture Urine Culture [facility] Start: 12-12-2024 Urine culture [facility] Start: 11-29-2023 Patient referral [facility] Work Phone: Comprehensive metabo lic 2000 panel - Serum or Plasma [facility] Patient referral [facility] Work Phone: [facility] Immunizations Immunization Date Immunization Notes Care Provider Fa cility 05-28-2013 meningococcal oligosaccharide (groups A, C, Y and W-135) diphtheria toxoid conjugate vaccine (MCV4O) Barbara Lisa Other [facility] 05-28-2013 pneumococcal Conjuga te, unspecified formulation; Translations: [Need for prophylactic vaccination against Streptococcus pneumoniae (pneumococcus)] Barbara Holman Other [facility] Other 05-28-2013 tetanus and diphther ia toxoids, adsorbed, preservative free, for adult use (5 Lf of tetanus toxoid and 2 Lf of diphtheria toxoid) Barbara Holman Other [facility] Payers Date Payer Category Payer Self-pay 2022 Unknown [id number] 1958 Medicare [id number] 2.1 [id number] 1959 Unknown [id number] 2.16.8 [id number] 1941 Unknown [id number] 2.16.84 0.1.518939.3.579.2.593 1941 Unknown [id number] 2.16.84 0.1.594656.3.579.2.593 1941 Unknown [id number] 2.16.84 0.1.808051.3.579.2.593 1941 Unknown [id number] 2.16.84 0.1.574859.3.579.2.593 1941 Unknown [id number] 2.16.84 0.1.014670.3.579.2.593 1941 Unknown [id number] 2.16.84 0.1.007175.3.579.2.593 1941 Unknown [id number] 2.16.84 0.1.954236.3.579.2.593 1941 Unknown [id number] 2.16.84 0.1.174933.3.579.2.593 1941 Unknown [id number] 2.16.84 0.1.857019.3.579.2.593 1941 Unknown [id number] 2.16.84 0.1.759168.3.579.2.593 1941 Unknown [id number] 2.16.84 0.1.999268.3.579.2.593 1941 Unknown [id number] 2.16.8 40.1.038282.3.579.2.727 1941 Unknown [id number] 2.16.84 0.1.579067.3.579.2.1259 1941 Unknown [id number] 2.16.84 0.1.672276.3.579.2.1259 1941 Unknown [id number] 2.16.84 0.1.772863.3.579.2.1259 1941 Unknown [id number] 2.16.84 0.1.972092.3.579.2.1259 1941 Unknown [id number] 2.16.84 0.1.394420.3.579.2.1259 1941 Unknown [id number] 2.16.84 0.1.863099.3.579.2.1259 1941 Unknown [id number] 2.16.84 0.1.682814.3.579.2.1259 Unknown [id number] 2.16.8 40.1.558652.3.579.2.531 Social History Date Type Detail Facility Unknown if ever smoked [facility] Other Sex Assigned At [facility] Start: 1940 Sex Assigned At Female F [facility] Tobacco smoking status No Smokin g Status Entered [facility] Tobacco smoking stat [facility] Unknown if ever smoked [facility] Work Phone: Start: 12-12-2024 End: 12-13-2024 Sex Female (finding) [facility] Functional Status Date Assessment Result Facility 12-27-2023 Functional Status N/A Pritesh Elmore [facility] Clinical Notes 09-21-2022 to 12-12-2024 Note Date & Type Note Facility 12-12-2024 Evaluation note Diagnosis Onset Date Resolution Bilateral knee pain acute December 12, 2024 10:24am Cardiac murmur acute November 10:24am Class 2 obesity with body mass index (BMI) of 38.0 to 38.9 in adult acute December 12 10:24am Depression with anxiety acute A pril 2024 10:24am Dysuria acute December 12 10:24am Essential hypertension acute Ap ril 2024 10:24am Hypercoagulable state acute Apr 2024 10:24am Medicare annual wellness visit, subsequent acute December 12 10:24am [facility] Work Phone: [phone]) 685-313211-08-2023 Evaluation note* Encounter Date Diagnosis Assessment Notes Treatment Notes Treatment Clinical Notes Jun, Arthritis of left knee (ICD-10 - M17.12) [facility] Other 04-20-2023 Evaluation note* Encounter Date Diagnosis Assessment Notes Treatment Notes Treatment Clinical Notes Nov, Arthritis of left knee (ICD-10 - M17.12) [facility] Other 02-01-2023 Evaluation note* Encounter Date Diagnosis Assessment Notes Treatment Notes Treatment Clinical Notes Sep, Ischemic stroke (ICD-10 - I63.9) Continue present medicines. Keep follow-up appointment with neurology. Therapy order was rewritten so she was able to go to the [facility] PT office as that is much closer to her home. Sep, Hyperlipidemia (ICD- 10 - E78.5) New medication added. We will recheck cholesterol in 3 months. Sep, Essential hypertensi on (ICD-10 - I10) Stable on present medicines. Sep, Hypercoagulable stat e (ICD-10 - D68.59) Continue warfarin. I will investigate if Pritesh Saha has a Coumadin clinic that she can follow-up closer to home. [facility] Other Evaluation + Plan note Future Appointments Appointment Date:01/25/2024 09:30:00 AM Scheduled Provider:Anish Jeffrey PA-C Location:[facility]Cardiology Clinic Appointment Type:Cardiology Follow Up ([facility]) Future Scheduled Tests Radiology* NM Myocardial Spect Rest/Stress 1 Day 12/27/23 * Echo Transthoracic [facility]23 [facility] Other Evaluation note* Diagnosis Onset Date Resolution Status Bilateral knee pain acute Cardiac murmur acute [facility] Work Phone: Evaluation note* Diagnosis Onset Date Resolution Status Admit Date Dysuria acute December 12 10:24am Essential hypertension acute Ap 2024 10:24am [facility] Work Phone: History general Narrative - Reported* Type Description Date Medical History Diastolic blood pressure 90 mm H g or higher Medical History Obesity, morbid Medical History Depression with anxiety Medical History Hypercoagulable state Medical History Essential hypertension Medical History Elevated fasting glucose Medical History Osteoarthritis of le ft knee, unspecified osteoarthritis type Medical History Hyperlipidemia Medical History Vertigo Medical History Inflamed seborrheic keratosis Medical History stroke Surgical History CHOLECYSTECTOMY Surgical History APPENDECTOMY Hospitalization History SEE SURGICAL HX [facility] Other Hospital course Narrative No data available for this section [facility] Orders* Referral to Cardiology Time Frame: 11/29/23, Location: None Selected * Referral to Orthopedic Surgery Time Frame: 11/29/23, Location: None Selected [facility] Work Phone: Hospital Discharge instructions No data available for this section [facility] No data available for this section [facility] Summary Purpose Family History No Family History Records Found Relationship Condition Age at Onset Recorded Date/T terrance father Unknown Not Specified Unknown Relationship Condition Age at Onset Recorded Date/T terrance father Unknown mother Unknown Advance Directives No Advanced Directives Records Found Advance Directive Response Recorded Date/ Time Advance Directives No November 07, 024 3:14pm Chief Complaint and Reason for Visit Chief Complaint Admit Date Wellness December 12, 2024 10: 24am Reason for Visit Admit Date Bilateral knee pain December 12, 2024 10: 24am Cardiac murmur December 12, 2024 10: 24am Class 2 obesity with body ma ss index (BMI) of 38.0 to 38.9 in adult December 12, 2024 10:24am Depression with anxiety December 12, 2024 10:24am Dysuria December 12, 2024 10: 24am Essential hypertension December 12, 2024 10:24am Hypercoagulable state December 12, 2024 1 0:24am Medicare annual wellness visit, subseque nt December 12, 2024 10:24am Chief Complaint Amb Documentation Amb Documentation Wellness Reason for Visit Bilateral knee pain Cardiac murmur Reason for Visit Admit Date Dysuria December 12, 2024 10: 24am Essential hypertension December 12, 2024 10:24am Additional Source Comments REASON FOR VISIT (unrecogniz ed section and content) TCMFTMCrefillrefill INFORMATION SOURCE (unrecogn ized section and content) DATE CREATED AUTHOR 01/27/2023 [facility] DATE CREATED AUTHOR AUTHOR'S ORGANIZ ATION 01/21/2024 [facility] DATE CREATED AUTHOR AUTHOR'S ORGANIZ ATION 04/02/2024 [facility] EPIC DATE CREATED AUTHOR AUTHOR'S ORGANIZ ATION 12/26/2024 [facility] Care Teams (unrecognized sec tion and content) Team Status: Active Member Role Status Dates Barbara Holman MD Primary Care Provider Active Team Status: Inactive Member Role Status Dates Barbara Holman MD Primary Care Provide r, Attending Provider Active Start: December 12, 2024 End: December 12, 2024 Team Status: Active Member Role Status Dates Barbara Holman MD Primary Care Provider Active Start: October 23, 2023 CAROLINA Campbell Attending Provider Active Start : October 23, 2023 Team Status: Active Member Role Status Dates Barbara Holman MD Primary Care Provider Active Start: October 30, 2023 CAROLINA Campbell Attending Provider Active Start : October 30, 2023 Team Status: Inactive Member Role Status Dates Barbara Holman MD Primary Care Provide r, Attending Provider Active Start: November 29, 2023 End: November 29, 2023 Team Status: Inactive Member Role Status Dates Barbara Holman MD Attending Provider Active St art: December 12, 2024 End: December 12, 2024 Goals (unrecognized section and content) Goals may be documented in a n alternate section FOR RECORDS PERTAINING TO PATIENTS WHO ARE OR HAVE BEEN ENROLLED IN A CHEMICAL DEPENDENCY/SUBSTANCEABUSE PROGRAM, SOME INFORMATION MAY BE OMITTED. This clinical summary was aggregated from multiple sources. Caution should be exercised in using it in the provision of clinical care. This summary normalizes information from multiple sources, and as a consequence, information in this document may materially change the coding, format and clinical context of patient data. In addition, data may be omitted in some cases. CLINICAL DECISIONS SHOULD BE BASED ON THE PRIMARY CLINICAL RECORDS. [facility]. provides no warranty or guarantee of the accuracy or completeness of information in this document.
[2025-01-08 11:10] LABS: Basophils Percent Auto 0.6 % (0.2-2.0); Eosinophils Absolute Auto 0.2 10^3/uL (0.0-0.7); Eosinophils Percent Auto 2.1 % (0.9-7.0); Hematocrit 39.1 % (36.0-48.0); Immature Granulocytes Abs Auto 0.03 10^3/uL (0.00-0.03); Immature Granulocytes Pct Auto 0.4 % (0.0-0.5); Lymphocytes Percent Auto 13.6 % (20.5-60.0); Mean Corpuscular HGB Conc 33.2 g/dL (29.9-35.2); Mean Corpuscular Hemoglobin 31.1 pg (26.7-34.0); Mean Corpuscular Volume 93.5 fL (81.0-99.0); Mean Platelet Volume 10.4 fL (9.5-13.5); Monocytes Absolute Auto 0.5 10^3/uL (0.3-0.8); Neutrophils Absolute Auto 5.4 10^3/uL (1.4-6.5); Neutrophils Percent Auto 76.3 % (43.0-75.0); Platelet Count 213 10^3/uL (150-450); Red Blood Count 4.18 10^6/uL (4.20-5.40); White Blood Count 7.1 10^3/uL (4.0-11.0)
[2025-01-08 11:29] LABS: Alanine Aminotransferase 27 U/L (14-59); Albumin Level 3.4 g/dL (3.4-5.0); Alkaline Phosphatase 39 U/L (46-116); Anion Gap 13.3; Aspartate Amino Transferase 16 U/L (15-37); BUN Creatinine Ratio 23.2; Bilirubin Total 0.6 mg/dL (0.2-1.0); Calcium 9.3 mg/dL (8.5-10.1); Carbon Dioxide 30.1 mmol/L (21.0-32.0); Chloride 103 mmol/L (98-107); Estimated GFR (African America >60 (>=60 mL/min/1.73m^2); Estimated GFR (Non-African Ame 56 (>=60 mL/min/1.73m^2); Globulin 3.5 g/dL; Glucose 116 mg/dL (74-106); Potassium 4.4 mmol/L (3.5-5.1); Sodium 142 mmol/L (136-145); Total Protein 6.9 g/dL (6.4-8.2)
== END 2025-01-08 10:46 | disposition home or self-care (01) ==
LOC: LAB 10:47
PROVIDERS: PCP Family Medicine; Visit Provider Family Medicine
DX: R30.0 Dysuria (principal); I10 Essential (primary) hypertension; Z51.81 Encounter for therapeutic drug level monitoring; Z79.01 Long term (current) use of anticoagulants
CPT/HCPCS: 36415; 80053; 81003; 82043; 82570; 85025; 85610

== ENCOUNTER 2025-02-05 13:12 | Outpatient (RCR) | payer MEDICARE, OTHER, SELFPAY | END 2025-02-13 14:53 | disposition home or self-care (01) | LOC: MM 13:12 | PROVIDERS: PCP Family Medicine; Visit Provider Internal Medicine | DX: Z51.81 Encounter for therapeutic drug level monitoring (principal) | CPT/HCPCS: 85610; G0463 ==

== ENCOUNTER 2025-02-18 02:30 | Outpatient (RCR) | payer MEDICARE, OTHER, SELFPAY | END 2025-03-20 16:40 | disposition home or self-care (01) | LOC: MM 02:30 | PROVIDERS: PCP Family Medicine; Visit Provider Internal Medicine | DX: Z51.81 Encounter for therapeutic drug level monitoring (principal); Z79.01 Long term (current) use of anticoagulants; D68.59 Other primary thrombophilia ==

== ENCOUNTER 2025-03-21 01:49 | Outpatient (RCR) | payer MEDICARE, OTHER, SELFPAY | END 2025-04-17 12:39 | disposition home or self-care (01) | LOC: MM 01:49 | PROVIDERS: PCP Family Medicine; Visit Provider Internal Medicine | DX: Z51.81 Encounter for therapeutic drug level monitoring (principal); Z79.01 Long term (current) use of anticoagulants; D68.59 Other primary thrombophilia | CPT/HCPCS: 85610; G0463 ==

== ENCOUNTER 2025-04-21 00:35 | Outpatient (RCR) | payer MEDICARE, OTHER, SELFPAY | END 2025-05-20 15:06 | disposition home or self-care (01) | LOC: MM 00:35 | PROVIDERS: PCP Family Medicine; Visit Provider Internal Medicine | DX: Z51.81 Encounter for therapeutic drug level monitoring (principal); Z79.01 Long term (current) use of anticoagulants; D68.59 Other primary thrombophilia ==

== ENCOUNTER 2025-05-21 01:26 | Outpatient (RCR) | payer MEDICARE, OTHER, SELFPAY | END 2025-06-20 23:59 | disposition home or self-care (01) | LOC: MM 01:26 | PROVIDERS: PCP Family Medicine; Visit Provider Internal Medicine | DX: Z51.81 Encounter for therapeutic drug level monitoring (principal); Z79.01 Long term (current) use of anticoagulants | CPT/HCPCS: 85610; G0463 ==

== ENCOUNTER 2025-06-24 11:27 | Outpatient (RCR) | payer MEDICARE, OTHER, SELFPAY | END 2025-07-20 23:59 | disposition home or self-care (01) | LOC: MM 11:27 | PROVIDERS: PCP Family Medicine; Visit Provider Family Medicine | DX: Z51.81 Encounter for therapeutic drug level monitoring (principal); Z79.01 Long term (current) use of anticoagulants; I26.99 Other pulmonary embolism without acute cor pulmonale | CPT/HCPCS: 85610; G0463 ==

== ENCOUNTER 2025-08-20 12:35 | Outpatient (RCR) | payer MEDICARE, OTHER, SELFPAY | END 2025-08-20 12:35 | disposition home or self-care (01) | LOC: MM 12:35 | PROVIDERS: PCP Family Medicine; Visit Provider Family Medicine | DX: Z51.81 Encounter for therapeutic drug level monitoring (principal); Z79.01 Long term (current) use of anticoagulants; I26.99 Other pulmonary embolism without acute cor pulmonale ==